=== PATIENT | female | born 1990 | race Asian ===

== ENCOUNTER 2019-12-23 17:10 | Emergency (ER) | payer MEDICAID, OTHER ==
[~2019-12-23] VITALS: Ht 157.5 cm; Wt 60.1 kg
[2019-12-23 17:13] VITALS: BP 115/82
== END 2019-12-23 18:40 | disposition home or self-care (01) ==
LOC: ED 18:35
DX: L02.01 Cutaneous abscess of face (principal)
CPT/HCPCS: 10060; 99283; 99284

== ENCOUNTER 2020-12-05 18:04 | Emergency (ER) | payer MEDICAID | END 2020-12-05 22:35 | LOC: ED 22:25 | DX: R51.9 Headache, unspecified (principal); Z53.21 Procedure and treatment not carried out due to patient leaving prior to being seen by health care provider ==